=== PATIENT | female | born 1955 | race Two or more races ===

== ENCOUNTER 2021-05-18 04:48 | Inpatient (IN) | payer MEDICARE, OTHER ==
[~2021-05-18] VITALS: Ht 162.6 cm; Wt 80.7 kg
[2021-05-18] MEDS ORDERED: HYDROmorphone 2 MG/ML, 1ML IV ONE (05:30)
[2021-05-18] MEDS ORDERED: HYDROmorphone 1 MG/ML, 1ML INJ IV ONE (05:30)
--- NOTE | 2021-05-18 05:50 | NUR ---
straight cath supervised by liza rodriguez
[2021-05-18] MEDS ORDERED: PLEASE ENTER ALLERGIES MC SCH (06:00)
[2021-05-18 06:02] LABS: MICROSCOPIC AUTO
--- NOTE | 2021-05-18 06:08 | NUR ---
patients HR increased 190s and went to patients room to get EKG. patient in SVT and Evelio TAM notified. Carolina TAM came to bedside and assessed patient. Carolina TAM asked for adenosine, but patient self converted to NSR before giving medication. patient asymptomatic during cardiac event. follow up EKG to be done
[2021-05-18 06:09] LABS: BASOPHILS % (AUTO) 0 % (0-1); EOSINOPHILS % (AUTO) 0 % (1-7); LYMPHOCYTES % (AUTO) 16 % (22-44); MEAN CORPUSCULAR HEMOGLOBIN 26.7 pg (27.0-34.8); MEAN PLATELET VOLUME 6.5 fL (7.4-10.4); MONOCYTES % (AUTO) 7 % (2-9); NEUTROPHILS % (AUTO) 77 % (42-75); PLATELET COUNT 685 x10^3/uL (130-400); RED BLOOD COUNT 4.19 x10^6/uL (3.82-5.3); RED CELL DISTRIBUTION WIDTH 18.3 % (9.6-15.2)
[2021-05-18 06:17] LABS: ALBUMIN 2.5 g/dL (3.4-5.0); ANION GAP 7 mmol/L (5-15); CALCIUM 8.3 mg/dL (8.5-10.1); CHLORIDE 106 mmol/L (98-107); CREATININE 0.38 mg/dL (0.55-1.02); HCT (SEDRATE) 34.9 % (34.6-47.8)
[2021-05-18] MEDS ORDERED: HYDROmorphone 2 MG/ML, 1ML ONE ×3 (06:23→09:38)
[2021-05-18] MEDS ORDERED: SODIUM CHLORIDE 0.9% 1,000ML IVBOLUS ONE (06:30)
[2021-05-18] MEDS ORDERED: SODIUM CHLORIDE FLUSH 10ML SYR IVF ONE (06:30)
[2021-05-18 06:54] LABS: TROPONIN I < 0.015 ng/mL (0.000-0.045)
--- NOTE | 2021-05-18 07:46 | NUR ---
COMMODITY MANAGEMENT SPECIALIST#[id number] PT ADVISED OF BEING ADMITTED, CONFIRMED ALLERGIES, AND INSTRUCTED ON MED ADMINISTRATION. PT REQ MORE PAIN MEDS.
[2021-05-18] MEDS ORDERED: CEFTRIAXONE 1,000 MG in DEXTROSE 5% 50 ML IVPB ONE (08:00)
--- NOTE | 2021-05-18 08:57 | NUR ---
REPORT FROM PEDRO, ASSUME CARE OF PT AT THIS TIME.
[2021-05-18] MEDS ORDERED: MAGNESIUM SULFATE PMX 2GM/50ML 50 ML IV ONE (09:00)
[2021-05-18] MEDS ORDERED: MAGNESIUM SULFATE PMX 2GM/50ML 50 ML ONE (09:02)
--- NOTE | 2021-05-18 09:23 | NUR ---
DR JANE IN TO SEE PT. PT STATES ONLY MEDS TAKING RIGHT NOW IS PREDNISONE AND NORCOS. HOSPITAL BED ORDERED. CHEMIST ORGANIC AND THIS RN TO CHANGE LINENS, ASSIST IN MOVING PT TO HOSPITAL BED WHEN READY, CLEAN PT UP, AND POSITION FOR COMFORT.
--- NOTE | 2021-05-18 09:49 | NUR ---
PT MEDICATED FOR PAIN PER VO DR JANE. MAGNESIUM INFUSING, NS BOLUS RESTARTED IN DIFFERENT IV LINE. VS UPDATED IN COMPUTER.
--- NOTE | 2021-05-18 10:45 | NUR ---
THREE PERSON ASSIST WITH MOVE OF PT TO HOSPITAL BED. PT INSISTS ON BEING POSITIONED ON L SIDE. ATTEMPT MARIO POSITION WITH PADDING OF PILLOWS, BLANKETS, SHEETS. CHUX PADS UNDERNEATH AND BETWEEN LEGS WHICH ARE CONTRACTURED. PT WITH CALL LIGHT, CELL PHONE, AND PURSE WITHIN REACH.
--- NOTE | 2021-05-18 11:33 | NUR ---
PT MAKING MULTIPLE CALLS ON LIGHT FOR HELP. PT CONTINUES TO PULL OFF PULSE OX AND OTHER MONITORING DEVICES. WHEN ANSWERING CALL LIGHT, PT OBSERVED ON CELLPHONE WITH 911. PER CITY CONTROLLER, PT HAS CALLED A COUPLE TIMES. PT STATES SHE WANTS TO GO HOME, DOESN'T WANT TO STAY IN HOSPITAL. POC EXPLAINED TO PT BUT PT ADAMANT ABOUT WANTING TO GO. JAVASCRIPT PROGRAMMER AND THROUGHPUT RN NOTIFIED.
[2021-05-18 13:42] VITALS: BP 149/77
[2021-05-18] MEDS ORDERED: GABAPENTIN 300 MG CAPSULE PO PRN (14:00)
[2021-05-18] MEDS ORDERED: DOCUSATE 100 MG CAPSULE PO PRN (14:00)
[2021-05-18] MEDS ORDERED: ACETAMINOPHEN 325 MG TABLET PO PRN (14:00)
[2021-05-18] MEDS ORDERED: POLYETHYLENE GLYCOL 17 GM PACKET PO PRN (14:00)
[2021-05-18 15:14] LABS: TROPONIN I < 0.015 ng/mL (0.000-0.045)
[2021-05-18] MEDS: SODIUM CHLORIDE 0.9% 1,000 ML IV SCH (15:20)
[2021-05-18] MEDS: SODIUM CHLORIDE 0.9% 1,000ML IVBOLUS SCH ×2 (15:22→16:49)
[2021-05-18] MEDS: ENOXAPARIN 40 MG/0.4 ML SQ SCH (15:25)
[2021-05-18] MEDS: ONDANSETRON 2MG/ML, 2ML IVPush PRN ×2 (18:11→23:36)
[2021-05-18] MEDS: LINEZOLID PMX 600MG/300ML 300 ML IV SCH (18:11)
[2021-05-18 19:56] VITALS: BP 110/74
[2021-05-18] MEDS: morphine SULFATE 10 MG/ML, 1ML IVPush PRN (20:00)
[2021-05-18 20:37] LABS: TROPONIN I < 0.015 ng/mL (0.000-0.045)
[2021-05-18] MEDS: HYDROcodone/APAP 5/325 TABLET PO PRN ×2 (23:27→23:36)
[2021-05-19] MEDS: morphine SULFATE 10 MG/ML, 1ML IVPush PRN ×6 (00:32→23:53)
[2021-05-19 01:20] VITALS: BP 111/59
[2021-05-19] MEDS: SODIUM CHLORIDE 0.9% 1,000 ML IV SCH ×4 (03:00→20:28)
[2021-05-19] MEDS: LINEZOLID PMX 600MG/300ML 300 ML IV SCH ×2 (03:33→15:12)
[2021-05-19 06:14] LABS: CHLORIDE 96 mmol/L (98-107)
[2021-05-19 06:16] LABS: BASOPHILS % (AUTO) 0 % (0-1); EOSINOPHILS % (AUTO) 0 % (1-7); LYMPHOCYTES % (AUTO) 13 % (22-44); MEAN CORPUSCULAR HEMOGLOBIN 26.8 pg (27.0-34.8); MEAN CORPUSCULAR HGB CONC 32.6 g/dL (32.4-35.8); MEAN PLATELET VOLUME 6.4 fL (7.4-10.4); MONOCYTES % (AUTO) 8 % (2-9); NEUTROPHILS % (AUTO) 79 % (42-75); PLATELET COUNT 700 x10^3/uL (130-400); RED BLOOD COUNT 3.88 x10^6/uL (3.82-5.3); RED CELL DISTRIBUTION WIDTH 17.6 % (9.6-15.2)
[2021-05-19 06:29] LABS: ALANINE AMINOTRANSFERASE 13 U/L (12-78); ALBUMIN 2.1 g/dL (3.4-5.0); ALKALINE PHOSPHATASE 70 U/L (45-117); ANION GAP 10 mmol/L (5-15); BILIRUBIN,TOTAL 0.6 mg/dL (0.2-1.0); CALCIUM 7.6 mg/dL (8.5-10.1); CHOL/HDL RATIO 2.6; CHOLESTEROL, TOTAL 111 mg/dL (140-239); CREATININE 0.19 mg/dL (0.55-1.02); HDL CHOL % 38 % (28-40); HDL CHOLESTEROL (DIRECT) 42 mg/dL (40-60); LDL CHOLESTEROL,CALCULATED 52 mg/dL (54-169); LDL/HDL RATIO 1.2 (0.5-3.0); TOTAL PROTEIN 6.7 g/dL (6.4-8.2); TRIGLYCERIDES 87 mg/dL (50-200); VLDL CHOLESTEROL 17 mg/dL (0-25)
[2021-05-19] MEDS ORDERED: MAGNESIUM SULFATE PMX 2GM/50ML 50 ML IV ONE (07:30)
[2021-05-19] MEDS: CEFTRIAXONE 1,000 MG in DEXTROSE 5% 50 ML IVPB SCH (07:43)
[2021-05-19 09:00] VITALS: BP 120/65
[2021-05-19] MEDS: MAGNESIUM OXIDE 400 MG TABLET PO SCH (09:22)
[2021-05-19] MEDS: POTASSIUM ACID PHOSPHATE 500 MG TABLET.SOL PO SCH ×3 (09:22→20:17)
[2021-05-19] MEDS: POTASSIUM CHLORIDE 20 MEQ TAB.ER.PRT PO SCH ×3 (09:22→20:17)
[2021-05-19] MEDS: ONDANSETRON 2MG/ML, 2ML IVPush PRN (09:23)
[2021-05-19 09:58] VITALS: BP 93/67
[2021-05-19] MEDS ORDERED: METOPROLOL TARTRATE 25 MG TAB ONE (10:14)
[2021-05-19] MEDS ORDERED: METOPROLOL TARTRATE 25 MG TAB PO ONE (10:30)
[2021-05-19] MEDS: HYDROcodone/APAP 5/325 TABLET PO PRN ×2 (10:52→16:10)
[2021-05-19] MEDS ORDERED: SODIUM CHLORIDE 0.9%, 500ML IVBOLUS ONE (11:30)
[2021-05-19] MEDS ORDERED: ADENOSINE 6 MG/2 ML IVPush ONE (11:30)
[2021-05-19] MEDS: ENOXAPARIN 40 MG/0.4 ML SQ SCH (14:05)
[2021-05-19 14:10] VITALS: BP 100/63
[2021-05-19] MEDS ORDERED: TRAZ-96 PO (15:27)
[2021-05-19] MEDS ORDERED: HYDR1TAB53 PO (15:28)
[2021-05-19] MEDS ORDERED: MORP60CP12 PO (15:30)
[2021-05-19] MEDS ORDERED: ALEN70TA77 PO (15:40)
[2021-05-19] MEDS ORDERED: PRED10TA PO (15:40)
[2021-05-19] MEDS ORDERED: ADENOSINE 6 MG/2 ML ONE (16:38)
[2021-05-19 17:32] VITALS: BP 108/64
[2021-05-19] MEDS: METOPROLOL TARTRATE 25 MG TAB PO SCH (17:33)
[2021-05-19 20:19] VITALS: BP 95/56
[2021-05-20] MEDS: POTASSIUM CHLORIDE 20 MEQ TAB.ER.PRT PO SCH (01:14)
[2021-05-20] MEDS: HYDROcodone/APAP 5/325 TABLET PO PRN ×3 (01:14→16:23)
[2021-05-20] MEDS: POTASSIUM ACID PHOSPHATE 500 MG TABLET.SOL PO SCH (01:15)
[2021-05-20 01:22] VITALS: BP 118/66
[2021-05-20] MEDS: LINEZOLID PMX 600MG/300ML 300 ML IV SCH ×2 (03:23→15:09)
[2021-05-20] MEDS: SODIUM CHLORIDE 0.9% 1,000 ML IV SCH ×2 (03:25→14:25)
[2021-05-20] MEDS: morphine SULFATE 10 MG/ML, 1ML IVPush PRN ×3 (05:38→12:31)
[2021-05-20] MEDS: METOPROLOL TARTRATE 25 MG TAB PO SCH (05:39)
[2021-05-20 05:58] LABS: BASOPHILS % (AUTO) 0 % (0-1); EOSINOPHILS % (AUTO) 0 % (1-7); LYMPHOCYTES % (AUTO) 22 % (22-44); MEAN CORPUSCULAR HEMOGLOBIN 27.1 pg (27.0-34.8); MEAN CORPUSCULAR HGB CONC 32.5 g/dL (32.4-35.8); MEAN PLATELET VOLUME 6.4 fL (7.4-10.4); MONOCYTES % (AUTO) 11 % (2-9); NEUTROPHILS % (AUTO) 67 % (42-75); PLATELET COUNT 621 x10^3/uL (130-400); RED BLOOD COUNT 3.49 x10^6/uL (3.82-5.3); RED CELL DISTRIBUTION WIDTH 17.9 % (9.6-15.2)
[2021-05-20 06:11] LABS: CHLORIDE 108 mmol/L (98-107)
[2021-05-20 06:20] LABS: ANION GAP 4 mmol/L (5-15); CALCIUM 7.6 mg/dL (8.5-10.1); CREATININE 0.27 mg/dL (0.55-1.02)
[2021-05-20] MEDS: CEFTRIAXONE 1,000 MG in DEXTROSE 5% 50 ML IVPB SCH (07:30)
[2021-05-20 08:30] VITALS: BP 97/58
[2021-05-20] MEDS: MAGNESIUM OXIDE 400 MG TABLET PO SCH (08:44)
[2021-05-20] MEDS ORDERED: DOXY100C5 PO (08:56)
[2021-05-20] MEDS ORDERED: AMOX1TAB64 PO (08:56)
[2021-05-20] MEDS ORDERED: METO25TA35 PO (08:56)
[2021-05-20 13:21] VITALS: BP 82/45
[2021-05-20] MEDS: ENOXAPARIN 40 MG/0.4 ML SQ SCH (15:08)
== END 2021-05-20 17:20 | disposition hospice, inpatient (51) | DRG 872 ==
LOC: ED 08:02 → EDIP 08:32 → SUATTDRO 08:32 → 5SO 13:28
PROVIDERS: ADMIT Internal Medicine; ATTEND Internal Medicine
PROC: 0T9B70Z Drainage of Bladder with Drainage Device, Via Natural or Artificial Opening (ICD-10-PCS; principal; 2021-05-18)
DX: A41.9 Sepsis, unspecified organism (principal); L03.116 Cellulitis of left lower limb; L03.115 Cellulitis of right lower limb; I47.1 Supraventricular tachycardia; F11.20 Opioid dependence, uncomplicated; N39.0 Urinary tract infection, site not specified; E83.39 Other disorders of phosphorus metabolism; E83.42 Hypomagnesemia; E87.6 Hypokalemia; E88.09 Other disorders of plasma-protein metabolism, not elsewhere classified; G89.29 Other chronic pain; M06.9 Rheumatoid arthritis, unspecified; R62.7 Adult failure to thrive
CPT/HCPCS: 36415; 71045; 80048; 80053; 80061; 81001; 82040; 83605; 83735; 84100; 84443; 84484; 85025; 85651; 87040; 87077; 87086; 93005; 93306; 96361; 96365; 96375; 99291; G0378; J0153; J0696; J1170; J1650; J2020; J2405; J2270; J3475; J7030; J7040; J7512